=== PATIENT | female | born 1990 | race African-American/Black ===

== ENCOUNTER 2016-08-02 19:19 | Emergency (ER) | payer SELFPAY ==
[~2016-08-02 19:19] MED LIST: ABILIFY5 MG PO; BACTRIM DS TABL1 TAB PO; BACTRIM DS1 TAB PO; BIRTH CONTROL; CIPRO500 MG PO; FLAGYL500 MG PO; LEXAPRO10 MG PO; NAPROSYN500 M1 PO; NO HOME MEDICATION XX; NORCO 5-325 TA1 EACH PO; PRENATAL VITAMI1 TAB PO; PRENATAL1 EACH PO
[2016-08-02] MEDS ORDERED: CYCLOBENZAPRINE5 M1 PO (21:25)
[2016-08-02 22:05] LABS: BASO % 0.3 % (0-2); EOS % 1.9 % (0-7); EOSINOPHIL ABSOLUTE COUNT 0.1 tho/cmm (0.0-0.7); HCT-HEMATOCRIT 35.6 % (34.0-49.0); HGB-HEMOGLOBIN 11.6 gm/dl (12.0-15.5); IMMATURE GRANULOCYTES ABSOLUTE 0.02 tho/cmm (0-0.03); IMMATURE GRANULOCYTES PERCENT 0.3 % (0-0.3); LYMPH % 30.4 % (20-45); LYMPH ABSOLUTE COUNT 2.1 tho/cmm (0.8-4.5); MCH (MEAN CORPUSCULAR HGB) 28.9 pg (28.0-32.0); MCHC MEAN CORPUSCULAR HGB CONC 32.6 % (32.0-36.0); MCV (MEAN CELL VOLUME) 88.6 fl (82.0-96.0); MEAN PLATELET VOLUME 10.3 cmc (9.4-12.4); MONO % 6.2 % (0-12); MONOCYTE ABSOLUTE COUNT 0.4 tho/cmm (0.0-1.2); NEUTROPHIL ABSOLUTE COUNT 4.2 tho/cmm (1.6-8.0); NEUTROPHIL-AUTOMATED 4.2 tho/cmm (1.6-8.0); NEUTROPHILS % 60.9 % (40-80); PLATELET COUNT 188 tho/cmm (150-450); RED BLOOD COUNT 4.02 mil/cmm (4.00-5.20); RED CELL DISTRIBUTION WIDTH 12.7 % (12.4-16.4); WHITE BLOOD COUNT 6.9 tho/cmm (4.0-10.0)
[2016-08-02 22:21] LABS: ALBUMIN 3.5 g/dl (3.5-5.0); ALKALINE PHOSPHATASE 43 U/L (33-138); ALT/SGPT 18 U/L (12-78); ANION GAP 11 mmol/L (0-20); AST/SGOT 13 U/L (10-40); BILIRUBIN,TOTAL 0.2 mg/dl (0-1.5); BLOOD UREA NITROGEN 10 mg/dl (6-24); CALCIUM 8.6 mg/dl (8.5-10.5); CARBON DIOXIDE-VENOUS 29 mmol/L (22-32); CHLORIDE 105 mmol/l (96-110); CREATININE 0.84 mg/dl (0.50-1.10); GLUCOSE 90 mg/dL (70-110); POTASSIUM 3.8 mmol/L (3.7-5.1); SODIUM 141 mmol/L (135-145); eGFR VALUE FOR BLACK >90 mL/Min
[2016-08-02 22:24] LABS: C-REACTIVE PROTEIN <0.3 mg/dl (0-0.9)
[2016-08-02 22:26] LABS: ESR-ERYTHROCYTE SED RATE 7 mm/hr (0-20)
[2016-10-08] MEDS ORDERED: NO HOME MEDICATION XX
== END 2016-08-02 23:03 ==
LOC: EDMED 19:19
PROVIDERS: Emergency Medicine Emergency Medical Services
DX: M25.532 Pain in left wrist (principal); M79.605 Pain in left leg; F17.200 Nicotine dependence, unspecified, uncomplicated; Z98.890 Other specified postprocedural states